=== PATIENT | male | born 1975 | race Two or more races ===

== ENCOUNTER 2021-01-12 15:05 | Inpatient (IN) | payer OTHER ==
[2021-01-12 16:19] VITALS: BMI 24.7
[2021-01-12] MEDS ORDERED: chlordiazePOXIDE HCL 25 MG CAPSULE PO PRN (20:23)
[2021-01-12] MEDS ORDERED: METHOCARBAMOL 500 MG TABLET PO PRN (20:23)
[2021-01-12] MEDS ORDERED: ONDANSETRON *ODT* 4 MG TABLET SL PRN (20:23)
[2021-01-12] MEDS ORDERED: MAGNESIUM CITRATE 300 ML BOTTLE PO PRN (20:23)
[2021-01-12] MEDS ORDERED: MAG HYDROX/AL HYDROX/SIMETH 30 ML UNIT-DOSE CUP PO PRN (20:23)
[2021-01-12] MEDS ORDERED: BISMUTH SUBSALICYLATE 524 MG/30 ML UD PO PRN (20:23)
[2021-01-12] MEDS ORDERED: MAGNESIUM HYDROX 2400MG/30ML ORAL SUSPENSION 30 ML CUP PO PRN (20:23)
[2021-01-12] MEDS ORDERED: IBUPROFEN 400 MG TABLET (FP) PO PRN (20:23)
[2021-01-12] MEDS ORDERED: ACETAMINOPHEN 325 MG TABLET (FP) PO PRN ×2 (20:23)
[2021-01-12] MEDS ORDERED: MENTHOL/PHENOL 1 EACH UD MM PRN (20:23)
[2021-01-12] MEDS: chlordiazePOXIDE HCL 25 MG CAPSULE PO SCH (23:44)
[2021-01-12] MEDS: hydrOXYzine PAMOATE 25 MG CAPSULE (FP) PO SCH (23:45)
[2021-01-12] MEDS: THIAMINE HCL 100 MG TABLET (FP) PO SCH (23:46)
[2021-01-12] MEDS: MELATONIN 5 MG TABLETS PO SCH (23:46)
[2021-01-13] MEDS: levETIRAcetam 500 MG TABLET (FP) PO SCH ×4 (00:34→22:03)
[2021-01-13] MEDS: chlordiazePOXIDE HCL 25 MG CAPSULE PO SCH ×4 (06:09→22:04)
[2021-01-13] MEDS: hydrOXYzine PAMOATE 25 MG CAPSULE (FP) PO SCH ×5 (06:10→22:04)
[2021-01-13] MEDS ORDERED: cloNIDine HCL 0.1 MG TABLET PO PRN (09:29)
[2021-01-13] MEDS: PRENATAL VITAMINS W/ FOLIC ACID TABLET (FP) PO SCH (10:07)
[2021-01-13] MEDS: NICOTINE 21 MG/24 HOURS TOPICAL PATCH TD SCH (10:07)
[2021-01-13 10:32] LABS: HEMATOCRIT 38.3 % (35.4-49); HEMOGLOBIN 13.1 GM/dL (11.7-16.9); MCH 32.9 pg (25.7-33.7); MCHC 34.2 g/dl (32.0-35.9); MEAN CELL VOLUME 96.2 fl (80-96); PLATELET COUNT 149 K/MM3 (134-434); RBC 3.98 M/mm3 (4.00-5.60); RDW 15.3 % (11.9-15.9)
[2021-01-13 10:34] LABS: ALBUMIN 3.1 g/dl (3.4-5.0)
[2021-01-13 10:35] LABS: BLOOD UREA NITROGEN 9.1 mg/dL (7-18); CALCIUM 8.8 mg/dL (8.5-10.1)
[2021-01-13 10:38] LABS: CREATININE 0.6 mg/dL (0.55-1.3)
[2021-01-13 10:39] LABS: BILIRUBIN,TOTAL 0.9 mg/dL (0.2-1); TOT PROT 7.1 g/dl (6.4-8.2)
[2021-01-13] MEDS: THIAMINE HCL 100 MG TABLET (FP) PO SCH (22:03)
[2021-01-13] MEDS: MELATONIN 5 MG TABLETS PO SCH (22:04)
[2021-01-13] MEDS: traZODone HCL 100 MG TABLET (FP) PO SCH (22:04)
[2021-01-14] MEDS: hydrOXYzine PAMOATE 25 MG CAPSULE (FP) PO SCH ×5 (06:13→22:43)
[2021-01-14] MEDS: chlordiazePOXIDE HCL 25 MG CAPSULE PO SCH ×4 (06:13→22:41)
[2021-01-14] MEDS: PRENATAL VITAMINS W/ FOLIC ACID TABLET (FP) PO SCH (10:41)
[2021-01-14] MEDS: NICOTINE 21 MG/24 HOURS TOPICAL PATCH TD SCH (10:41)
[2021-01-14] MEDS: levETIRAcetam 500 MG TABLET (FP) PO SCH ×2 (10:41→22:40)
[2021-01-14] MEDS: THIAMINE HCL 100 MG TABLET (FP) PO SCH (22:40)
[2021-01-14] MEDS: MELATONIN 5 MG TABLETS PO SCH (22:41)
[2021-01-14] MEDS: traZODone HCL 100 MG TABLET (FP) PO SCH (22:41)
[2021-01-15] MEDS ORDERED: chlordiazePOXIDE HCL 10 MG CAPSULE PO PRN
[2021-01-15] MEDS: chlordiazePOXIDE HCL 10 MG CAPSULE PO SCH ×4 (06:30→22:34)
[2021-01-15] MEDS: hydrOXYzine PAMOATE 25 MG CAPSULE (FP) PO SCH ×5 (06:30→22:34)
[2021-01-15] MEDS: levETIRAcetam 500 MG TABLET (FP) PO SCH ×2 (10:11→22:33)
[2021-01-15] MEDS: NICOTINE 21 MG/24 HOURS TOPICAL PATCH TD SCH (10:12)
[2021-01-15] MEDS: PRENATAL VITAMINS W/ FOLIC ACID TABLET (FP) PO SCH (10:12)
[2021-01-15] MEDS: BACITRACIN 0.9 GM PACKET TP SCH ×2 (14:51→23:42)
[2021-01-15] MEDS: THIAMINE HCL 100 MG TABLET (FP) PO SCH (22:33)
[2021-01-15] MEDS: traZODone HCL 100 MG TABLET (FP) PO SCH (22:33)
[2021-01-15] MEDS: MELATONIN 5 MG TABLETS PO SCH (22:33)
[2021-01-16] MEDS: hydrOXYzine PAMOATE 25 MG CAPSULE (FP) PO SCH ×5 (06:56→21:50)
[2021-01-16] MEDS: chlordiazePOXIDE HCL 10 MG CAPSULE PO SCH ×2 (06:57→17:44)
[2021-01-16] MEDS: PRENATAL VITAMINS W/ FOLIC ACID TABLET (FP) PO SCH (10:48)
[2021-01-16] MEDS: levETIRAcetam 500 MG TABLET (FP) PO SCH ×2 (10:48→21:50)
[2021-01-16] MEDS: BACITRACIN 0.9 GM PACKET TP SCH (10:48)
[2021-01-16] MEDS: NICOTINE 21 MG/24 HOURS TOPICAL PATCH TD SCH (10:48)
[2021-01-16] MEDS: MELATONIN 5 MG TABLETS PO SCH (21:50)
[2021-01-16] MEDS: traZODone HCL 100 MG TABLET (FP) PO SCH (21:50)
[2021-01-16] MEDS: THIAMINE HCL 100 MG TABLET (FP) PO SCH (21:50)
[2021-01-17] MEDS: BACITRACIN 0.9 GM PACKET TP SCH ×2 (00:16→10:10)
[2021-01-17] MEDS ORDERED: chlordiazePOXIDE HCL 10 MG CAPSULE PO ONE (05:00)
[2021-01-17] MEDS: hydrOXYzine PAMOATE 25 MG CAPSULE (FP) PO SCH ×2 (06:11→10:10)
[2021-01-17 09:04] VITALS: BP 90/56; PULSE 71; TEMP 98.9
[2021-01-17] MEDS: PRENATAL VITAMINS W/ FOLIC ACID TABLET (FP) PO SCH (10:10)
[2021-01-17] MEDS: NICOTINE 21 MG/24 HOURS TOPICAL PATCH TD SCH (10:10)
[2021-01-17] MEDS: levETIRAcetam 500 MG TABLET (FP) PO SCH (10:10)
[2021-01-18 13:02] LABS: SARS-CoV-2 NAA Not Detected
== END 2021-01-17 10:43 | disposition home or self-care (01) | DRG 775 ==
LOC: YASAS 15:05 → Y6N 20:41
PROVIDERS: ADMIT Allergy & Immunology; ATTEND Allergy & Immunology
PROC: HZ2ZZZZ Detoxification Services for Substance Abuse Treatment (ICD-10-PCS; principal; 2021-01-12)
DX: F10.230 Alcohol dependence with withdrawal, uncomplicated (principal); F17.210 Nicotine dependence, cigarettes, uncomplicated; F10.24 Alcohol dependence with alcohol-induced mood disorder; F10.280 Alcohol dependence with alcohol-induced anxiety disorder; F10.282 Alcohol dependence with alcohol-induced sleep disorder; F19.24 Other psychoactive substance dependence with psychoactive substance-induced mood disorder; F25.9 Schizoaffective disorder, unspecified; F90.9 Attention-deficit hyperactivity disorder, unspecified type; G40.909 Epilepsy, unspecified, not intractable, without status epilepticus; R76.11 Nonspecific reaction to tuberculin skin test without active tuberculosis; R74.01 Elevation of levels of liver transaminase levels; S42.301D Unspecified fracture of shaft of humerus, right arm, subsequent encounter for fracture with routine healing; X58.XXXD Exposure to other specified factors, subsequent encounter; Z88.8 Allergy status to other drugs, medicaments and biological substances; Z59.0 Homelessness
CPT/HCPCS: 36415; 71045-TC-FY; 73110-TC-LT-FY; 73130-TC-LT-FY; 80053; 80177; 85027; 86780; 93005; 93010; C9803; J0735; U0003; U0005